=== PATIENT | female | born 1980 | race Caucasian/White ===

== ENCOUNTER 2016-09-09 13:31 | Emergency (ER) | payer MEDICAID ==
[~2016-09-09] VITALS: Ht 152.4 cm; Wt 150.0 kg
[~2016-09-09 13:31] MED LIST: ACET-66 PO
[2016-09-09] MEDS ORDERED: birth control PO (13:37)
[2016-09-09] MEDS ORDERED: SODIUM CHLORIDE 0.9% 1,000 ML IV ONE (14:00)
[2016-09-09] MEDS ORDERED: METOCLOPRAMIDE HCL 5 MG/ML 2 ML VIAL IVP ONE (14:00)
[2016-09-09] MEDS ORDERED: DiphenhydrAMINE HCL 50 MG/ML VIAL IVP ONE (14:00)
[2016-09-09 14:55] VITALS: BP 117/48
== END 2016-09-09 15:22 | disposition home or self-care (01) ==
LOC: EMS 13:33
DX: R51 Headache (principal)
CPT/HCPCS: 96361; 96374; 96375; 99284; J1200; J2765; J7030

== ENCOUNTER 2017-06-28 18:20 | Emergency (ER) | payer MEDICAID ==
[~2017-06-28] VITALS: Ht 160 cm; Wt 74.5 kg
[~2017-06-28 18:20] MED LIST changes: +birth control PO
[2017-06-28] MEDS ORDERED: MULT-1251 PO (18:36)
[2017-06-28] MEDS ORDERED: KETOROLAC TROMETHAMINE 60 MG/2 ML VIAL IM ONE (21:15)
[2017-06-28 21:28] VITALS: BP 132/72
== END 2017-06-28 21:32 | disposition home or self-care (01) ==
LOC: EMS 18:21
DX: S70.02XA Contusion of left hip, initial encounter (principal); S80.02XA Contusion of left knee, initial encounter; V89.2XXA Person injured in unspecified motor-vehicle accident, traffic, initial encounter; Y93.89 Activity, other specified; Y92.89 Other specified places as the place of occurrence of the external cause; Y99.8 Other external cause status
CPT/HCPCS: 96372; 99283; J1885

== ENCOUNTER 2017-10-26 00:32 | Emergency (ER) | payer MEDICAID ==
[~2017-10-26] VITALS: Ht 160 cm; Wt 75.5 kg
[~2017-10-26 00:32] MED LIST changes: +MULT-1251 PO; -birth control PO
[2017-10-26] MEDS ORDERED: DEXAMETHASONE SOD PHOS 4 MG/ML 5 ML VIAL IM ONE (01:45)
[2017-10-26 01:56] VITALS: BP 127/72
== END 2017-10-26 01:57 | disposition home or self-care (01) ==
LOC: EMS 00:33
DX: J02.9 Acute pharyngitis, unspecified (principal)
CPT/HCPCS: 96372; 99283; J1100

== ENCOUNTER 2019-08-06 20:46 | Emergency (ER) | payer MEDICAID ==
[~2019-08-06] VITALS: Ht 157.5 cm; Wt 76.4 kg
[2019-08-06 21:27] LABS: APPEARANCE,URINE CLEAR (CLEAR); BILIRUBIN,URINE NEGATIVE (NEGATIVE); GLUCOSE, URINE (UA) NEGATIVE (NEGATIVE); KETONES,URINE NEGATIVE (NEGATIVE); LEUKOCYTE ESTERASE ,URINE SMALL (NEGATIVE); NITRATE,URINE NEGATIVE (NEGATIVE); OCCULT BLOOD,URINE NEGATIVE (NEGATIVE); PH,URINE 6.5 (5.0-8.0); PROTEIN,URINE NEGATIVE (NEGATIVE); UROBILINOGEN,URINE 0.2 mg/dL (<=1.0)
[2019-08-06 21:44] LABS: BACTERIA,URINE Few /HPF (None Seen); RBC,URINE 0-2 /HPF (0-2); SQUAMOUS EPITHELIAL CELL,UR Moderate /LPF (None Seen)
[2019-08-06 23:34] LABS: BASOPHILS % (AUTO) 0.7 % (0.0-2.0); EOSINOPHILS % (AUTO) 1.2 % (1.0-6.0); HEMATOCRIT 40.5 % (36-46); HEMOGLOBIN 13.7 g/dL (12.0-16.0); LYMPHOCYTES % (AUTO) 22.7 % (22.0-44.0); MEAN CORPUSCULAR HEMOGLOBIN 29.9 pg (26.0-34.0); MEAN CORPUSCULAR HGB CONC 33.7 G/dL (31.0-37.0); MEAN CORPUSCULAR VOLUME 89 fL (80-100); MONOCYTES # (AUTO) 0.7 K/uL (0.1-1.0); MONOCYTES % (AUTO) 7.8 % (2.0-9.0); NEUTROPHILS % (AUTO) 67.6 % (40.0-70.0); PLATELET COUNT (AUTO) 240 K/uL (150-450); RED BLOOD CELL COUNT(AUTO) 4.57 MIL/uL (4.00-5.20); RED CELL DISTRIBUTION WIDTH 13.2 % (11.5-14.5)
[2019-08-06 23:42] LABS: ANION GAP 6 mmol/L (8-16); CARBON DIOXIDE 27 mmol/L (22-29); CHLORIDE 105 mmol/L (98-107); CREATININE 0.68 mg/dL (0.60-1.30); GLOMERULAR FILTR. RATE CALC > 60 mL/min (>60); GLUCOSE,RANDOM 102 mg/dL (70-110); POTASSIUM 4.1 mmol/L (3.5-5.1); SODIUM SERUM 138 mmol/L (136-145); UREA NITROGEN, BLOOD 7 mg/dL (7-18)
[2019-08-06 23:55] LABS: ALANINE AMINOTRANSFERASE 46 U/L (12-78); ALKALINE PHOSPHATASE 64 U/L (46-116); ASPARTATE AMINOTRANSFERASE 26 U/L (15-37); BILIRUBIN,TOTAL 0.4 mg/dL (0.1-1.0); HCG,QUANTITATIVE < 1 mIU/mL (0-6); TOTAL PROTEIN, SERUM 7.8 g/dL (6.4-8.2)
[2019-08-07 00:04] VITALS: BP 114/71
== END 2019-08-07 00:58 | disposition home or self-care (01) ==
LOC: EMS 20:47
DX: N30.90 Cystitis, unspecified without hematuria (principal); Z90.710 Acquired absence of both cervix and uterus; Z90.89 Acquired absence of other organs
CPT/HCPCS: 87086

== ENCOUNTER 2019-08-11 09:51 | Emergency (ER) | payer MEDICAID ==
[~2019-08-11] VITALS: Ht 160 cm; Wt 68.2 kg
[2019-08-11] MEDS ORDERED: KETOROLAC TROMETHAMINE 60 MG/2 ML VIAL IM ONE (11:00)
[2019-08-11 11:21] VITALS: BP 126/71
== END 2019-08-11 11:31 | disposition home or self-care (01) ==
LOC: EMS 09:54
DX: M54.5 Low back pain (principal); Z90.49 Acquired absence of other specified parts of digestive tract; Z90.710 Acquired absence of both cervix and uterus
CPT/HCPCS: 81002; 81025; 96372; 99283; J1885

== ENCOUNTER 2022-07-05 20:37 | Emergency (ER) | payer MEDICAID ==
[~2022-07-05] VITALS: Ht 152.4 cm; Wt 68.2 kg
[2022-07-05] MEDS ORDERED: ONDANSETRON HCL 4 MG TABLET PO ONE (22:00)
[2022-07-05] MEDS ORDERED: LIDOCAINE 5% TRANSDERMAL PATCH TD ONE (22:00)
[2022-07-05] MEDS ORDERED: IBUPROFEN 600 MG TABLET PO ONE (22:00)
[2022-07-05] MEDS ORDERED: MECLIZINE HCL 25 MG TABLET PO ONE (22:00)
[2022-07-05 23:34] VITALS: BP 126/74
== END 2022-07-05 23:59 | disposition home or self-care (01) ==
LOC: EMS 20:37
DX: R51.9 Headache, unspecified (principal); M54.2 Cervicalgia; M54.89 Other dorsalgia; Z90.49 Acquired absence of other specified parts of digestive tract; Z90.710 Acquired absence of both cervix and uterus
CPT/HCPCS: 99284; 84703; Q0162

== ENCOUNTER 2022-10-14 17:13 | Emergency (ER) | payer MEDICAID ==
[~2022-10-14] VITALS: Ht 152.4 cm; Wt 70.5 kg
[2022-10-14 17:31] VITALS: BP 118/86
[2022-10-14] MEDS ORDERED: AMOX500C2 PO (18:20)
[2022-10-14] MEDS ORDERED: IBUP-1492 PO (18:20)
== END 2022-10-14 18:39 | disposition home or self-care (01) ==
LOC: EMS 17:20
DX: H65.91 Unspecified nonsuppurative otitis media, right ear (principal); Z90.49 Acquired absence of other specified parts of digestive tract; Z90.710 Acquired absence of both cervix and uterus
CPT/HCPCS: 99283; Z7502

== ENCOUNTER 2022-12-21 06:00 | Emergency (ER) | payer MEDICAID ==
[~2022-12-21] VITALS: Ht 160 cm; Wt 73.0 kg
[~2022-12-21 06:00] MED LIST changes: -ACET-66 PO; +AMOX500C2 PO; +IBUP-1492 PO; -MULT-1251 PO
[2022-12-21 06:02] VITALS: BP 118/71
[2022-12-21] MEDS ORDERED: PENI500T2 PO (07:44)
[2022-12-21] MEDS ORDERED: IBUP-1492 PO (07:44)
== END 2022-12-21 08:01 | disposition home or self-care (01) ==
LOC: EMS 06:01
DX: J02.0 Streptococcal pharyngitis (principal)
CPT/HCPCS: 87430; 99283

== ENCOUNTER 2024-04-05 12:00 | Emergency (ER) | payer MEDICAID, OTHER ==
[~2024-04-05] VITALS: Ht 157.5 cm; Wt 75.0 kg
[~2024-04-05 12:00] MED LIST changes: -AMOX500C2 PO; +PENI500T2 PO
[2024-04-05 12:11] VITALS: TEMP 98
[2024-04-05 14:32] LABS: BASOPHILS % (AUTO) 0.9 % (0.0-2.0); EOSINOPHILS % (AUTO) 1.2 % (1.0-6.0); HEMATOCRIT 42.5 % (36-46); HEMOGLOBIN 13.9 g/dL (12.0-16.0); LYMPHOCYTES # (AUTO) 1.9 K/uL (1.0-4.8); LYMPHOCYTES % (AUTO) 26.5 % (22.0-44.0); MEAN CORPUSCULAR HEMOGLOBIN 29.4 pg (26.0-34.0); MEAN CORPUSCULAR HGB CONC 32.7 G/dL (31.0-37.0); MEAN CORPUSCULAR VOLUME 90 fL (80-100); MONOCYTES # (AUTO) 0.6 K/uL (0.1-1.0); MONOCYTES % (AUTO) 8.4 % (2.0-9.0); NEUTROPHILS # (AUTO) 4.4 K/uL (1.8-7.7); PLATELET COUNT (AUTO) 240 K/uL (150-450); RED BLOOD CELL COUNT(AUTO) 4.72 MIL/uL (4.00-5.20); RED CELL DISTRIBUTION WIDTH 13.7 % (11.5-14.5)
[2024-04-05] MEDS: SODIUM CHLORIDE 0.9% 1,000 ML IV ONE (14:38)
[2024-04-05] MEDS: KETOROLAC TROMETHAMINE 30 MG/ML VIAL IVP ONE (14:38)
[2024-04-05] MEDS: ACETAMINOPHEN 500 MG TABLET PO ONE (14:39)
[2024-04-05 14:41] LABS: ANION GAP 10 mmol/L (8-16); CALCIUM, TOTAL 8.7 mg/dL (8.8-10.5); CARBON DIOXIDE 25 mmol/L (22-29); CHLORIDE 104 mmol/L (98-107); CREATININE 0.67 mg/dL (0.60-1.30); GLOMERULAR FILTR. RATE CALC > 60 mL/min (>60); GLUCOSE,RANDOM 89 mg/dL (70-110); POTASSIUM 4.4 mmol/L (3.5-5.1); SODIUM SERUM 139 mmol/L (136-145); UREA NITROGEN, BLOOD 13 mg/dL (7-18)
[2024-04-05 15:47] VITALS: BP 114/74; PULSE 76; RESP 16; O2SAT 99
== END 2024-04-05 17:43 | disposition home or self-care (01) ==
LOC: EMS 12:00
DX: G43.909 Migraine, unspecified, not intractable, without status migrainosus (principal)
CPT/HCPCS: 99283; 96374; 96361; 80048; 84703; 85025; 36415; J1885; J7030

== ENCOUNTER 2024-11-25 22:44 | Emergency (ER) | payer OTHER ==
[~2024-11-25] VITALS: Ht 157.5 cm; Wt 75.0 kg
[2024-11-25 22:49] VITALS: TEMP 98.1
[2024-11-26 04:27] VITALS: BP 111/74; PULSE 71; RESP 17; O2SAT 99
== END 2024-11-26 05:20 | disposition home or self-care (01) ==
LOC: EMS 22:47
DX: G43.909 Migraine, unspecified, not intractable, without status migrainosus (principal); R20.0 Anesthesia of skin
CPT/HCPCS: 70450; 72125; 99284

== ENCOUNTER 2025-07-02 09:51 | Emergency (ER) | payer OTHER ==
[~2025-07-02] VITALS: Ht 157.5 cm; Wt 65.9 kg
[2025-07-02 09:57] VITALS: BP 129/85; PULSE 82; RESP 18; TEMP 98; O2SAT 97
== END 2025-07-02 13:10 | disposition left against medical advice (07) ==
LOC: EMS 09:51
DX: N94.89 Other specified conditions associated with female genital organs and menstrual cycle (principal); Z53.21 Procedure and treatment not carried out due to patient leaving prior to being seen by health care provider
CPT/HCPCS: 99281; Z7502